=== PATIENT | female | born 1990 | race African-American/Black ===

== ENCOUNTER 2019-04-02 23:17 | Emergency (ER) | payer MEDICAID ==
[2019-04-02] MEDS: LORAZEPAM 2 MG INJ IV (23:59)
[2019-04-03] MEDS: OLANZAPINE 10 MG VIAL IM (00:13)
[2019-04-03] MEDS: LORAZEPAM 1 MG TAB PO (03:37)
== END 2019-04-03 03:58 | disposition home or self-care (01) ==
LOC: E/R 23:17
DX: R10.84 Generalized abdominal pain (principal)
CPT/HCPCS: 96372; 96374; 99284-25